=== PATIENT | male | born 2000 | race Caucasian/White ===

== ENCOUNTER 2025-03-03 12:28 | Outpatient (OUT) | payer OTHER, SELFPAY ==
--- OUTSIDE RECORDS SUMMARY | 2025-03-03 09:14 | XMS_ITS | Continuity of Care Document ---
Author Name [facility] Organization [facility] Care Team Providers Care President Of The [place] Name Role Phone [facility] Unavailable Unavailable Allergies, Adverse Reactions, Alerts Combined list of allergies from Department of Defense and Veterans Affairs facilities. It does not include entries that were removed or entered in error. Substance Category Reaction Severity Reaction type Status Date Reported Comments Source IBUPROFEN (IBUPROFEN) Drug allergy (disorder) Unknown active 05/08/2019 [facility] [place] Encounters Combined list of: 1) Encounters from Department of Veterans Affairs facilities going backup to the last 18 months, not all [place] inpatient encounters are included; 2) Encounters from the Department of Defense facilities going backup to 280 months. Location Location Details Encounter Type Encounter Number Reason For Visit Attending Provider ADM Date DC Date Status Disposition Source [place] [id number] Notes Entered by: MORELIA PRITCHETT 17 Apr 2019 0925 ------- ------- ------- ------- -- hearing test MORELIA CAO 04/17 Released w/o Limitations [place] [place] [facility] [place] [id number] JUAN ANTONIO SINGH 04/19 Released w/o Limitations [place] [facility] [id number] ingrown toenail ERICA ELDRIDGE 04/23 Released with Work/Duty Limitations [place]) [place] [id number] TOE NAIL REMOVED ERICA ELDRIDGE 04/26 Released with Work/Duty Limitations [place]) [place] [id number] cold symtoms ERICA ELDRIDGE 05/06 Released w/o Limitations Francesco TITO, [employer] [place] ) Francesco FRANCIS[place] [employer]) [place]PAT[place] [id number] SWOLLEN HAND AND KNUCKLE S IN PAIN ERICA ELDRIDGE 05/07 Released w/o Limitations Francesco TITO, [employer] [place] ) Francesco FRANCIS, [place], [place] [id number] ZEFERINO CABALLERO 05/08 Released w/o Limitations Francesco TITO, [employer] , (ER) Francesco FRANCIS, [place] [place], (Recept [facility]) OUTPATIENT [id number] x ray ERICA ELDRIDGE 05/08 Released w/o Limitations Francesco FRANCIS, [place] , (Rece ption Station ) [facility]quin Mu[facility]oz, [place]([facility]) OUTPATIENT [id number] Notes Entered by: JOSEPH BARTON 03 Jun 2019 0811 ------- ------- ------- ------- -- IMM ERICA ELDRIDGE 06/03 Released w/o Limitations Francesco FRANCIS, [place] , (Rece ption Station ) Procedures Combined list of: 1) Procedures from Department of Veterans Affairs facilities going back up to thelast 18 months, not all VA non-surgical procedures are included; 2) All procedures from the Department of Defense facilities. Procedure Procedure Type Code Date Perfomer Comments Sour e Threshold Audiogram (Pure Tone) Automated Threshold Audiogram (Pure Tone) Automated 0208T MORELIA CAO Screening Test Of Visual Acuity, Quantitative, Bilateral Screening Test Of Visual Acuity, Quantitative, Bilateral 46413 JUAN ANTONIO SINGH Avulsion Of Nail Plate Avulsion Of Nail Plate 11113 ERICA ELDRIDGE Immunization Administration Each Additional Vaccine Immunization Administration Each Additional Vaccine 79803 ERICA ELDRIDGE Immunization Administration One Vaccine Immunization Administration One Vaccine [address] Supervised Injection Intramuscular Antibiotic Supervised Injection Intramuscular Antibiotic 86317 ERICA ELDRIDGE Tdap Vaccine Seven Years Of Age And Above Tdap Vaccine Seven Years Of Age And Above 52617 ERICA ELDRIDGE Visit for an IM injection of 0.5mL of Boostrix (Tetanus and Diphtheria Toxoids and Acellular Pertussis). Was given in the Right Deltoid. Patient was observed for 15 min with no adverse reactions. [facility] Vaccines Viral Polio, Inactivated (Salk) Vaccines Viral Polio, Inactivated (Salk) 48799 ERICA ELDRIDGE Visit for an IM injection of 0.5mL of IPOL (Poliovirus Vaccine Inactivated). Was given in the Right Deltoid. Patient was observed for 15 min with no adverse reactions. [facility] Injection, penicillin g benzathine, 100,000 units ERICA ELDRIDGE Visit for an IM injection of 1.2 million/units per 2mL of Bicillin L-A (Penicillin G Benzathine Injectable suspension). Was given in the left upper quadrant of left gluteal. Patient was observed for 15 minutes with no adverse reactions. [facility] Immunization Admin Intranasal / Oral Each Additional Vaccine Immunization Admin Intranasal / Oral Each Additional Vaccine 87260 ERICA ELDRIDGE [facility] Vaccines Adenovirus Type 4 Live, For Oral Use Vaccines Adenovirus Type 4 Live, For Oral Use 73289 ERICA ELDRIDGE A single vaccine dose administered orally. [facility] Vaccines Adenovirus Type 7 Live, For Oral Use Vaccines Adenovirus Type 7 Live, For Oral Use 47794 ERICA ELDRIDGE A single vaccine dose administered orally. [facility] ADENOVIRUS VACCINE, TYPE 7, LIVE, FOR ORAL USE 06/03/20 [facility] ORAL MEDICATION ADMINISTRATION, DIRECT OBSERVATION 05/07/20 19 [facility] AVULSION OF NAIL PLATE, PARTIAL OR COMPLETE, SIMPLE; SINGLE 04/23/20 [facility] SCREENING TEST OF VISUAL ACUITY, QUANTITATIVE, BILATERAL 04/18/20 [facility] PURE TONE AUDIOMETRY (THRESHOLD), AUTOMATED; AIR ONLY 04/17/20 19 [facility] Social History Combined list of available smoking, tobacco, and other social history from Department of Defense and Veterans Affairs facilities. Social History Type Response Date Comment Sour e This section is an empty social history section. [facility]
--- OUTSIDE RECORDS SUMMARY | 2025-03-03 12:38 | XMS_ITS | Clinical Summary ---
Author Organization [facility] Address [address], [address] [place] [address] Care Team Providers Care Record Keeper Name Role Phone Unavailable Primary Care Provider Unavailabl e Allergies Active Allergy Reactions Criticality Noted Date Comments Ibuprofen 05/26/2015 Heart spasms Medications No known medications Social History Tobacco Use Types Packs/Day Years Used Date Smoking Tobacco: Never Alcohol Use Standard Drinks/Week Comments No 0 (1 standard drink = 0.6 oz pur e alcohol) Sex and Gender Information Value Date Recorded Sex Assigned at Not on file Legal Sex Male 11:39 AM EST Gender Identity Not on file Sexual Orientation Not on file Last Filed Vital Signs Vital Sign Reading Time Taken Comments Blood Pressure 136/69 09/22/2015 10:07 PM EST Pulse 86 09/22/2015 10:07 PM EST Temperature 36.6 C (97.8 F) 09/22/2015 10:07 PM EST Respiratory Rate 20 09/22/2015 10:07 PM EST Oxygen Saturation 98% 09/22/2015 10:07 PM EST Inhaled Oxygen Concentration - - Weight - - Height - - Body Mass Index - - Plan of Treatment Not on file
--- OUTSIDE RECORDS SUMMARY | 2025-03-03 12:38 | XMS_ITS | Clinical Summary ---
Author Organization [facility] Address [address] [place] [address] Care Team Providers Care Heating And Blending Supervisor Name Role Phone No, Physician Primary Care Provider Unavailabl e Allergies Active Allergy Reactions Criticality Noted Date Comments Ibuprofen Palpitations Low 05/26/2015 heart problems Heart spasms Nsaids (Non-Steroidal Anti-Inflammatory Drug) Palpitations Low 07/21/2020 Medications raltegravir (ISENTRESS) 400 mg tablet Take 1 (one) tablet (400 mg total) by mouth 2 (two) times a day . 56 tablet 07/21/2020 Active emtricitabine-t enofovir, TDF, (TRUVADA) 200-300 mg per tablet (TAKE HOME MEDICATION FROM EMERGENCY DEPT) Take 1 (one) tablet by mouth daily . 28 tablet 07/21/2020 Active HYDROcodone-ramu taminophen (NORCO) 5-325 mg per tablet Take 1 (one) tablet by mouth every 6 (six) hours as needed for pain . 01/15/2024 Active fluticasone propionate (FLONASE) 50 mcg/actuation nasal spray 2 sprays per nostril ONCE DAILY x3 days then 1spray per nostril ONCE DAILY 01/23/2022 Active fexofenadine (CARO) 180 MG tablet Take 1 (one) tablet (180 mg total) by mouth daily . 01/23/2022 Active Active Problems No known active problems Immunizations Immunization Administration Dates Next Due Tdap 07/21/2020 Social History Tobacco Use Types Packs/Day Years Used Date Smoking Tobacco: Never Smokeless Tobacco: Never Alcohol Use Standard Drinks/Week Comments Not Currently 0 (1 standard drink = 0.6 oz pur e alcohol) Sex and Gender Information Value Date Recorded Sex Assigned at Not on file Legal Sex Male 9:56 PM EST Gender Identity Male 03/07/2022 6:38 AM EDT Sexual Orientation Straight 03/07/2022 6: 38 AM EDT Last Filed Vital Signs Vital Sign Reading Time Taken Comments Blood Pressure 134/85 05/08/2024 8:21 PM EDT Pulse 76 05/08/2024 8:21 PM EDT Temperature 36.6 C (97.9 F) 05/08/2024 8:22 PM EDT Respiratory Rate 18 05/08/2024 8:21 PM EDT Oxygen Saturation 96% 05/08/2024 8:21 PM EDT Inhaled Oxygen Concentration - - Weight 102.1 kg (225 lb) 05/08/2024 8:21 PM EDT Height 188 cm (6' 2 ) 05/08/2024 8:21 PM EDT Body Mass Index 28.89 05/08/2024 8:21 PM EDT Plan of Treatment Health Maintenance Due Date Last Done Comments Wellness Visit 01/20/2003 Depression Screening/Follow-Up (PHQ-2/9) 2012 COVID-19 Vaccine (2023-2 5 season) 2024 Influenza Vaccine (#1) 2025 3, 05/12/2011 Tetanus: Every 10yrs 07/21/2030 07/21/2020, 05/12/2011 HPV Vaccines Completed 05/02/2012, 05/12/2011 HIV Screening Completed 07/21/2020 Hepatitis C Screening Completed 07/21/2020 Pneumococcal Vaccine: Ped or At-Risk Aged Out No longer eligible b ased on patient's age to complete this topic Procedures Procedure Name Priority Date/Time Associated Diagnosis Comments HIV 1/2 SCREEN (4TH GENERATION) STAT 07/21/2020 10:12 PM EST HEPATITIS PANEL, ACUTE STAT 07/21/2020 10:12 PM EST from Last 3 Months or Most Recently Relevant to Health Maintenance Results * Hepatitis Panel, Acute (07/21/2020 10:12 PM EST) Hep A IgM Negative Negative 07/22/2020 10:42 AM EST [facility] Hep B C IgM Negative Negative 07/22/2020 10:42 AM [facility] Hepatitis B Surface Ag Negative Negative 07/22/2020 10:42 AM [facility] Hepatitis C Ab Negative Negative 07/22/2020 10:42 AM [facility] Blood BLOOD SPECIMEN / Unknown Venipuncture / Unknown 07/21/2020 10:12 PM EST 07/21/2020 10:20 PM EST [facility] - 07/22/2020 10:42 AM EST Test performed using Vanessa CLAUDETTE immunoassay system us Sudeep Mccullough III, PA-C LAB BLOOD ORDER CISCO Final Result Performing Organization Address City/[facility]/ZIP Co de Phone Number [facility] [address] [place], [place] [id number] * HIV Antibody (HIV1/HIV2) (07/21/2020 10:12 PM EST) HIV 1-2 Screen Negative Negative 07/22/2020 10:42 AM [facility] Blood BLOOD SPECIMEN / Unknown Venipuncture / Unknown 07/21/2020 10:12 PM EST 07/21/2020 10:20 PM EST [facility] - 07/22/2020 10:42 AM EST This assay screens for the presence of HIV-1, HIV-2 antibodies and for the presence of HIV-1 antigen. Test performed using Vanessa CLAUDETTE immunoassay system us Sudeep Mccullough III, PA-C LAB BLOOD ORDER CISCO Final Result [facility] [address] [place] [phone] from Last 3 Months or Most Recently Relevant to Health Maintenance Insurance [facility] SELF INSURED EMPLOYER* [facility] [employer] Care Teams Heating And Blending Supervisor Relationship Specialty Start Date End Date No, Physician [facility] PCP - General 07/21/20
--- OUTSIDE RECORDS SUMMARY | 2025-03-03 12:38 | XMS_ITS | Clinical Summary ---
Author Organization [facility] Address [address] [place] [address] Care Team Providers Care Research Program Intern Name Role Phone Unavailable Primary Care Provider Unavailabl e Allergies Active Allergy Reactions Criticality Noted Date Comments Ibuprofen 2020 heart problems Medications fluticasone 50 MCG/ACT Suspension nasal spray 2 sprays per nostril ONCE DAILY x3 days then 1spray per nostril ONCE DAILY 11.1 mL 1 01/23/2022 Active fexofenadine 180 MG tablet Take 1 tablet by mouth daily. 30 tablet 01/23/2022 Active Social History Tobacco Use Types Packs/Day Years Used Date Smoking Tobacco: Never Smokeless Tobacco: Never Alcohol Use Standard Drinks/Week Comments Never 0 (1 standard drink = 0.6 oz pur e alcohol) AUDIT-C Answer Date Recorded Q1: How often do you have a drink containing alc ohol? Never 2020 Average Number of Drinks Not on file 020 Frequency of Binge Drinking Not on file 01/2020 Sex and Gender Information Value Date Recorded Sex Assigned at Not on file Legal Sex Male 12:26 PM EDT Gender Identity Not on file Sexual Orientation Not on file Last Filed Vital Signs Vital Sign Reading Time Taken Comments Blood Pressure 169/88 01/23/2022 1:49 PM EDT Pulse 116 01/23/2022 1:49 PM EDT Temperature 37 C (98.6 F) 01/23/2022 1:49 PM EDT Respiratory Rate 18 01/23/2022 1:49 PM EDT Oxygen Saturation 97% 01/23/2022 1:49 PM EDT Inhaled Oxygen Concentration - - Weight - - Height 188 cm (6' 2 ) 01/23/2022 1:50 PM EDT Body Mass Index - - Plan of Treatment Health Maintenance Due Date Last Done Comments HEPATITIS C VIRUS SCREENING 2000 HEP B VACCINE (2 of 3 - 3-dose series) 07/12/2001 06/14/2001 HIV SCREENING DISCUSSION 01/20/2015 COVID-19 VACCINE (2023-2 5 season) 2024 INFLUENZA VACCINE (#1) 2025 05/12/2011 TETANUS 07/21/2030 07/21/2020, 05/12/2011, 05/02/2005 HPV VACCINE ADOL Completed 05/02/2012, 05/12/2011 HPV VACCINE Completed 05/02/2012, 05/12/2011 TDAP (ADULT) Completed 07/21/2020, 05/12/2011, 05/02/2005 PNEUMOCOCCAL VACCINE SERIES Aged Out No longer eligible based on patient's age to complete this topic Insurance MMO
--- NOTE | 2025-03-03 12:41 | XR_ITS ---
The [address] [address] Patient Name: LIBERTY NICOLAS MRN: [id number] date: 2000 Sex: M Assigned Patient Location: RAD Current Patient Location: [facility] Accession/Order Number: [id number] Exam Date: 03/03/2025 13:56 Report Date: 03/03/2025 13:56 At the request of: MINA CABELLO Procedure: XR ankle LT min 3V Left ankle, 3 views CLINICAL HISTORY: unspecified ankle injury COMPARISON: None FINDINGS: No fracture or dislocation. Joint spaces preserved. Talar dome intact. XR/XR ankle LT min 3V IMPRESSION: NO ACUTE OSSEOUS FINDINGS. Impression dictated by: Neymar Welsh M.D. 03/03/2025 1:56 PM Dictation Location: [place] [address] Electronically authenticated by: [id number] Y Date: 03/03/2025 13:56
== END 2025-03-03 12:29 | disposition home or self-care (01) ==
PROVIDERS: PCP Nurse Practitioner; Visit Provider Nurse Practitioner
DX: S99.912A Unspecified injury of left ankle, initial encounter (principal); Z78.9 Other specified health status; Z68.29 Body mass index [BMI] 29.0-29.9, adult
CPT/HCPCS: 73610